=== PATIENT | female | born 1995 | race Caucasian/White ===

== ENCOUNTER 2020-02-09 22:51 | Emergency (ER) | payer MEDICAID ==
[~2020-02-09] VITALS: Ht 157.5 cm; Wt 72.7 kg
[~2020-02-09 22:51] MED LIST: CLIN-97 PO; NYST15OI14 TP
[2020-02-09] MEDS ORDERED: fentaNYL/PF 50MCG/1 ML 2ML syringe IM ONE ×2 (23:00→23:05)
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
[2020-02-09 23:37] VITALS: BP 128/81
[2020-02-09] MEDS ORDERED: AMOX-580 PO (23:50)
--- NOTE | 2020-02-09 23:55 | NUR ---
[facility] NUMBER [phone]
== END 2020-02-10 00:14 | disposition home or self-care (01) ==
LOC: ER 22:51
DX: S01.112A Laceration without foreign body of left eyelid and periocular area, initial encounter (principal); Z79.2 Long term (current) use of antibiotics; Z79.899 Other long term (current) drug therapy; W01.0XXA Fall on same level from slipping, tripping and stumbling without subsequent striking against object, initial encounter; Y93.89 Activity, other specified; Y92.89 Other specified places as the place of occurrence of the external cause; Y99.8 Other external cause status
CPT/HCPCS: 70450; 70486; 96374; 99285; J3010